=== PATIENT | male | born 1970 | race Caucasian/White ===

== ENCOUNTER 2020-09-02 04:48 | Emergency (ER) | payer BC, SELFPAY ==
--- NOTE | ~2020-09-02 | XR_ITS ---
EXAMINATION: XR CHEST CLINICAL INFORMATION: Shortness of breath COMPARISON: None TECHNIQUE: Frontal view of the chest was obtained. FINDINGS: Cardiac leads overlie the chest. No consolidation, pneumothorax, pleural effusion. Cardiac and mediastinal contours are normal. Pulmonary vasculature is unremarkable. No acute osseous findings. XR/XR chest 1V IMPRESSION: No acute cardiopulmonary findings.
--- NOTE | 2020-09-02 04:52 | ECG_ITS ---
Test Reason : IFF BREATHING Blood Pressure : / mmHG Vent. Rate : 085 BPM Atrial Rate : 085 BPM P-R Int : 170 ms QRS Dur : 074 ms QT Int : 372 ms P-R-T Axes : 079 078 030 degrees QTc Int : 442 ms Normal sinus rhythm Biatrial enlargement Abnormal ECG No previous ECGs available Referred By: Sonal Eller Electronically Signed By:BASIL COUGHLIN MD
[2020-09-02 04:56] VITALS: BP 181/114; PULSE 110; RESP 28; TEMP 36.6; O2SAT 95; BMI 25.4
[2020-09-02] MEDS: Albuterol Sulfate (0.083%) 2.5 MG/3 ML VIAL.NEB 10 MG INHALE (05:12)
[2020-09-02] MEDS: methylPREDNISolone Sod Succ 125 MG/2 ML VIAL IVPUSH (05:32)
[2020-09-02 05:38] LABS: Basophils Absolute Auto 0.1 X10*3/uL (0.0-0.2); Basophils Percent Auto 0.7 % (0-2); Eosinophils Percent Auto 14.5 % (0-4); Hematocrit 46.1 % (42-52); Hemoglobin 15.2 g/dl (14.0-18.0); Imm Gran Abs Auto 0.01 X10*3/uL (0.00-0.03); Imm Gran Pct Auto 0.1 % (0.0-0.4); Lymphocytes Absolute Auto 2.4 X10*3/uL (1.2-4.9); Lymphocytes Percent Auto 35.4 % (20-40); MANUAL DIFF FLAG NO; Mean Corpuscular Hemoglobin 33.4 pg (27.0-33.0); Mean Corpuscular Volume 101.3 fL (80-98); Monocytes Absolute Auto 0.6 X10*3/uL (0.1-1.2); Monocytes Percent Auto 8.6 % (2-11); Neutrophils Absolute Auto 2.8 X10*3/uL (2.0-8.3); Neutrophils Percent Auto 40.7 % (45-73); Platelet Count 329 X10*3/uL (160-400); Red Blood Count 4.55 X10*6/uL (4.60-5.80); Red Cell Distribution Width 11.7 % (11.0-16.0); White Blood Count 6.8 X10*3/uL (4.8-10.8)
--- NOTE | 2020-09-02 05:40 | ED.SOB ---
HPI - SOB/Dyspnea General Chief Complaint: Dyspnea Stated Complaint: Sob Time Seen by Provider: 09/02/20 04:51 Source: patient Mode of arrival: ambulatory History of Present Illness HPI Narrative: This is a 50-year-old male with history of asthma who states that over the past week he has had progressive worsening shortness of breath despite using his rescue inhaler. He denies any fevers, chills, sore throat, recent travel and recently had his physical. Related Data Previous Rx's Medication Instructions Recorded albuterol sulfate [Ventolin HFA] 2 puff INHALATION Q4-6H PRN #1 ea 09/02/20 prednisone 40 mg PO DAILY 4 Days #8 tab 09/02/20 Allergies Allergy/AdvReac Type Severity Reaction Status Date / Time Penicillins [PENICILLINS] Allergy Unknown UNKNOWN Verified 09/02/20 04:59 Review of Systems Review of Systems: Pertinent positives and negatives as stated in HPI 10 point review of systems is otherwise negative. PMFSH Past Medical History Source: nursing notes reviewed Medical History Asthma Social History Social History Alcohol intake: never Smoking Status: Never smoker Use of substances other than those prescribed or required for medical reasons: No Advance Directives: No Physical Exam Vital Signs: Vital Signs: Last Vital Signs Temp 98 F 09/02/20 04:56 Pulse 78 09/02/20 06:19 Resp 24 H 09/02/20 06:19 BP 146/94 H 09/02/20 06:19 Pulse Ox 98 09/02/20 06:19 Body Mass Index 25.4 VITAL SIGNS: Reviewed. GENERAL: Well developed, well nourished, in no acute distress. HEAD: Normocephalic/atraumatic NOSE: Nares patent bilateral OROPHARYNX: no oral lesions noted, posterior pharynx clear LUNGS: Tachypneic, bilateral expiratory wheezing, retractions SpO2<95> CARDIOVASCULAR: Regular rate and rhythm without noted murmurs ABDOMEN: Soft, non-tender, non-distended with bowel sounds. NEUROLOGIC: Alert and oriented x 4. Course Course Course Narrative: This is a 50-year-old male with history and clinical presentation consistent with acute asthma exacerbation and on review investigations there are no acute findings other than eosinophilia COVID-19 testing is negative and chest x-ray is without acute findings. Patient given Solu-Medrol, 10 mg hour long which was then followed by 5 mg and he reports improvement in his symptoms. Signed out to Dr Watson. MDM - SOB/Dyspnea Lab Data Result diagrams: 09/02/20 05:31 09/02/20 05:31 Labs: Lab Results 09/02/20 09/02/20 09/02/20 Range/Units 05:31 05:31 05:31 WBC 6.8 (4.8-10.8) X10*3/uL RBC 4.55 L (4.60-5.80) X10*6/uL Hgb 15.2 (14.0-18.0) g/dl Hct 46.1 (42-52) % MCV 101.3 H (80-98) fL MCH 33.4 H (27.0-33.0) pg MCHC 33.0 (31.0-36.0) g/dl RDW 11.7 (11.0-16.0) % Plt Count 329 (160-400) X10*3/uL MPV 9.0 L (9.4-12.4) fL Immature Gran % (Auto) 0.1 (0.0-0.4) % Neut % (Auto) 40.7 L (45-73) % Lymph % (Auto) 35.4 (20-40) % Patrick % (Auto) 8.6 (2-11) % Eos % (Auto) 14.5 H (0-4) % Baso % (Auto) 0.7 (0-2) % Lymph # (Auto) 2.4 (1.2-4.9) X10*3/uL Patrick # (Auto) 0.6 (0.1-1.2) X10*3/uL Eos # (Auto) 1.0 H (0.0-0.4) X10*3/uL Baso # (Auto) 0.1 (0.0-0.2) X10*3/uL Abs Immat Gran (auto) 0.01 (0.00-0.03) X10*3/uL Absolute Neuts (auto) 2.8 (2.0-8.3) X10*3/uL Absolute Nucleated RBC 0.000 (0.0-0.012) X10*3/uL Nucleated RBC % (auto) 0.0 (0.0-0.2) /100WBC Sodium 140 (135-145) mmol/L Potassium 3.9 (3.3-5.1) mmol/L Chloride 103 (96-108) mmol/L Carbon Dioxide 29 (22-29) mmol/L Anion Gap 12 (12-20) BUN 19 H (9-16) mg/dL Creatinine 0.99 (0.5-1.4) mg/dL Estim Creat Clear Calc 88.2 Estimated GFR > 60 Random Glucose 120 H (60-115) mg/dL Calcium 9.0 (8.4-10.2) mg/dL Total Bilirubin 0.7 (0.0-1.0) mg/dL AST 20 (5-37) U/L ALT 13 (0-40) U/L Alkaline Phosphatase 73 (39-117) U/L Total Protein 7.1 (6.5-8.0) g/dL Albumin 4.2 (3.5-5.0) g/dL Coronavirus (PCR) NEGATIVE (Negative) Influenza Type A (PCR) NEGATIVE (Negative) Influenza Type B (PCR) NEGATIVE (Negative) RSV RNA Qual (PCR) NEGATIVE (Negative) Discharge Plan Discharge Clinical Impression: Asthma with exacerbation Qualifiers: Asthma severity: mild Asthma persistence: unspecified Qualified Code(s): J45.901 - Unspecified asthma with (acute) exacerbation Patient Disposition: Home, Self-Care Instructions: Asthma (ED) Additional Instructions: Return to the emergency department for any acute worsening of your symptoms. Please follow-up with your primary care provider in the next 1-2 days for re-evaluation. Prescriptions: New prednisone 20 mg tablet 40 mg PO DAILY 4 Days Qty: 8 RF: 0 albuterol sulfate [Ventolin HFA] 90 mcg/actuation HFA aerosol inhaler 2 puff inhalation Q4-6H PRN (Reason: shortness of breath or wheezing) Qty: 1 RF: 0 Referrals: Physician,Unknown [Primary Care Provider] - 2 days
[2020-09-02 06:05] LABS: Alanine Aminotransferase 13 U/L (0-40); Albumin Level 4.2 g/dL (3.5-5.0); Alkaline Phosphatase 73 U/L (39-117); Anion Gap 12 (12-20); Aspartate Amino Transferase 20 U/L (5-37); Bilirubin Total 0.7 mg/dL (0.0-1.0); Blood Urea Nitrogen 19 mg/dL (9-16); Carbon Dioxide 29 mmol/L (22-29); Chloride 103 mmol/L (96-108); Creatinine Clr Calc Pharmacy 88.2; Estimated Glomerular Filt Rate > 60; Glucose Random 120 mg/dL (60-115); Potassium 3.9 mmol/L (3.3-5.1); Sodium 140 mmol/L (135-145); Total Protein 7.1 g/dL (6.5-8.0)
[2020-09-02 06:19] VITALS: BP 146/94; PULSE 78; RESP 24; O2SAT 98
[2020-09-02 06:21] LABS: Influenza A PCR NEGATIVE (Negative); Influenza B PCR NEGATIVE (Negative); Resp Syncy Virus RNA Qual PCR NEGATIVE (Negative); SARS COV2 PCR INHOUSE NEGATIVE (Negative)
[2020-09-02] MEDS: Albuterol Sulfate (0.083%) 2.5 MG/3 ML VIAL.NEB 5 MG INHALE ×2 (06:31→08:42)
[2020-09-02 07:32] VITALS: BP 134/86; PULSE 89; RESP 15; O2SAT 89
--- NOTE | 2020-09-02 07:40 | PC.NURSE ---
Report given to PASTOR Wiley n S3. Pt is ready for transport.
[2020-09-02 08:44] VITALS: PULSE 86; O2SAT 93
[2020-09-02 09:51] VITALS: BP 141/86; PULSE 95; RESP 18; O2SAT 98
== END 2020-09-02 09:58 | disposition home or self-care (01) ==
PROVIDERS: Emergency Provider Student in an Organized Health Care Education/Training Program
DX: J45.901 Unspecified asthma with (acute) exacerbation (principal); Z20.822 Contact with and (suspected) exposure to COVID-19
CPT/HCPCS: 0241U; 36415; 71045; 80053; 85025; 93005; 94640; 96374; 99284; 99285; J2930

== ENCOUNTER 2021-03-09 10:04 | Emergency (ER) | payer BC, SELFPAY ==
--- NOTE | ~2021-03-09 | XR_ITS ---
EXAMINATION: XR CHEST CLINICAL INFORMATION: Shortness of breath COMPARISON: September 02, 2020 TECHNIQUE: AP portable view of the chest was obtained. FINDINGS: No significant abnormality is noted involving the heart, lungs, mediastinum, or soft tissues. There is calcific tendinitis of the right shoulder. XR/XR chest 1V IMPRESSION: No acute disease
[2021-03-09 10:14] VITALS: BP 233/124; PULSE 80; RESP 22; TEMP 37; O2SAT 93; BMI 24.0
--- NOTE | 2021-03-09 11:09 | ED_ITS ---
HPI - SOB/Dyspnea General Chief Complaint: Dyspnea Stated Complaint: Asthma Time Seen by Provider: 03/09/21 11:06 Source: patient Mode of arrival: ambulatory Limitations: no limitations History of Present Illness HPI Narrative: 50-year-old male came in for evaluation of shortness of breath. Symptoms started about 2 weeks ago with shortness of breath, feeling chest tightness with wheezing, coughing yellow sputum, patient usually get acute bronchitis once a year around this time, patient declined any exposure to a sick contact or recent travel, patient had his COVID vaccination. Patient also with known history of hypertension taking hydrochlorothiazide but he did not take it today blood pressure found to be high in triage. Declined any headache, blurry vision, chest pain except with cough, or abdominal pain. Related Data Previous Rx's Medication Instructions Recorded albuterol sulfate 90 mcg/actuation 2 puff INHALATION Q4-6H PRN #1 ea 09/02/20 aerosol inhaler (Ventolin HFA) ipratropium 0.5 mg-albuterol 3 mg 3 ml INHALATION Q6H PRN #180 ml 09/02/20 (2.5 mg base)/3 mL nebulization soln nebulizer and compressor #1 ea 09/02/20 prednisone 10 mg tablet See Rx Instructions .ROUTE 09/02/20 .COMPLEX #36 tab albuterol sulfate 2.5 mg INHALATION QID PRN #90 ml 03/09/21 albuterol sulfate 90 mcg/actuation 1 inh INHALATION QID PRN #8.5 g 03/09/21 aerosol inhaler azithromycin 250 mg tablet See Rx Instructions .ROUTE 03/09/21 (Zithromax Z-Dereck) .COMPLEX #6 tab prednisone 20 mg tablet 20 mg PO BID #10 tab 03/09/21 Allergies Allergy/AdvReac Type Severity Reaction Status Date / Time Penicillins [PENICILLINS] Allergy Unknown UNKNOWN Verified 09/02/20 04:59 Review of Systems Review of Systems: All other systems are reviewed and are negative Constitutional: Reports as per HPI and Reports no additional constitutional complaints Eyes: Reports as per HPI and Reports no additional eye complaints Reports system reviewed and no additional complaints, except as documented Cardiovascular: Reports as per HPI and Reports no additional cardiovascular complaints Respiratory: Reports as per HPI and Reports no additional respiratory complaints Gastrointestinal: Reports as per HPI and Reports no additional gastrointestinal complaints Genitourinary: Reports no additional female genitourinary complaints Musculoskeletal: Reports no additional musculoskeletal complaints Skin/Breast: Reports system reviewed and no additional complaints, except as docu Psychiatric: Reports no additional psychiatric complaints Endocrine: Reports no additional endocrine complaints Hematologic/Lymphatic: Reports no additional hematologic/lymphatic complaints Allergic/Immunologic: Reports no additional allergic/immunologic complaints Reports system reviewed and no additional complaints, except as documented and Reports Abnormal speech present [facility] Past Medical History Medical History Asthma Social History Social History Alcohol intake: never Patient Tobacco Use Status: Never used Tobacco Use of substances other than those prescribed or required for medical reasons: Yes Substance Use Type: Marijuana Substance Use Frequency: Occasionally Advance Directives: No Physical Exam Vital Signs: Vital Signs: Last Vital Signs Temp 97.9 F 03/09/21 13:27 Pulse 107 H 03/09/21 13:27 Resp 19 03/09/21 13:27 BP 137/92 H 03/09/21 13:27 Pulse Ox 95 03/09/21 13:27 Body Mass Index 24.0 Vital signs have been reviewed as appeared to be correct. Blood pressure elevated. Heart rate normal. Respiration rate normal. Temperature normal. Oxygen saturation normal. Appearance: Alert. Oriented X3. No acute distress. Head: Normal external exam. Normocephalic. Atraumatic. No Bartlett signs noted. No raccoon eyes noted Eyes: PERRLA. EOMI. Conjunctiva and sclera normal. Eyelids normal. ENT: TM's Normal. Pharynx normal. Uvula midline. Moist mucous membranes. No trismus noted. No drooling noted. No muffled voice noted. Neck: Normal inspection. Neck supple. FROM. No adenopathy. Thyroid Normal. No meningeal signs. No neck mass noted. CVS: Normal heart rate and rhythm. Heart sound normal. No murmurs noted. Pulses normal throughout. Respiratory: No respiratory distress. Painless inspiration. Breath sounds normal. Diffuse mild expiratory wheezing, prolonged expiration. Chest nontender. No accessory muscle usage noted or decreased air movement noted. Abdomen: Soft and nontender. Bowel sounds normal in all 4 quadrants. No distention noted. No organomegaly noted. No visible injury noted. Back: No CVA tenderness. Full range of motion noted. Skin: Skin warm and dry. Normal skin color. Normal skin turgor. No rashes/lesions/lacerations noted. Extremities: No lower extremity edema. Extremities exhibit normal range of motion. Extremities nontender. Neuro: Oriented X 3. Cranial nerve exam: II-XII are grossly intact No motor deficit. No sensory deficit. Reflexes normal. Course Course Course Narrative: Assessment and plan. 1. Bronchitis: Negative COVID testing, unremarkable chest x-ray, labs are unremarkable, fib patient feels better with bronchodilator/Solu- Medrol/Zithromax. Will discharge the patient on Z-Dereck/steroid/bronchodilator. 2. Essential hypertension patient on HCTZ intake his medicine today blood pressure was high patient received 50 mg of HCTZ a blood pressure now is 137/92. Patient was instructed to follow up with his PCP for further blood pressure management. MDM - SOB/Dyspnea Lab Data Attestation: I reviewed the patient's lab results. Result diagrams: 03/09/21 11:24 03/09/21 11:24 Labs: Lab Results 03/09/21 03/09/21 03/09/21 Range/Units 11:24 11:24 11:24 WBC 7.2 (4.8-10.8) X10*3/uL RBC 4.46 L (4.60-5.80) X10*6/uL Hgb 15.1 (14.0-18.0) g/dl Hct 45.3 (42-52) % MCV 101.6 H (80-98) fL MCH 33.9 H (27.0-33.0) pg MCHC 33.3 (31.0-36.0) g/dl RDW 11.7 (11.0-16.0) % Plt Count 327 (160-400) X10*3/uL MPV 9.1 L (9.4-12.4) fL Immature Gran % (Auto) 0.1 (0.0-0.4) % Neut % (Auto) 49.5 (45-73) % Lymph % (Auto) 24.9 (20-40) % Conway % (Auto) 8.9 (2-11) % Eos % (Auto) 16.0 H (0-4) % Baso % (Auto) 0.6 (0-2) % Lymph # (Auto) 1.8 (1.2-4.9) X10*3/uL Conway # (Auto) 0.6 (0.1-1.2) X10*3/uL Eos # (Auto) 1.2 H (0.0-0.4) X10*3/uL Baso # (Auto) 0.0 (0.0-0.2) X10*3/uL Abs Immat Gran (auto) 0.01 (0.00-0.03) X10*3/uL Absolute Neuts (auto) 3.6 (2.0-8.3) X10*3/uL Absolute Nucleated RBC 0.000 (0.0-0.012) X10*3/uL Nucleated RBC % (auto) 0.0 (0.0-0.2) /100WBC Sodium 142 (135-145) mmol/L Potassium 4.5 (3.3-5.1) mmol/L Chloride 104 (96-108) mmol/L Carbon Dioxide 32 H (22-29) mmol/L Anion Gap 11 L (12-20) BUN 8 L D (9-16) mg/dL Creatinine 0.87 (0.5-1.4) mg/dL Estim Creat Clear Calc 100.4 Estimated GFR > 60 Random Glucose 91 (60-115) mg/dL Calcium 9.9 D (8.4-10.2) mg/dL Troponin I High Sens 3.6 (<3.5-35.0) ng/L B-Natriuretic Peptide 22 (<100) pg/mL COVID-19 ([facility]) (Negative) COVID-19 Clin Com 03/09/21 Range/Units 11:24 WBC (4.8-10.8) X10*3/uL RBC (4.60-5.80) X10*6/uL Hgb (14.0-18.0) g/dl Hct (42-52) % MCV (80-98) fL MCH (27.0-33.0) pg MCHC (31.0-36.0) g/dl RDW (11.0-16.0) % Plt Count (160-400) X10*3/uL MPV (9.4-12.4) fL Immature Gran % (Auto) (0.0-0.4) % Neut % (Auto) (45-73) % Lymph % (Auto) (20-40) % Conway % (Auto) (2-11) % Eos % (Auto) (0-4) % Baso % (Auto) (0-2) % Lymph # (Auto) (1.2-4.9) X10*3/uL Conway # (Auto) (0.1-1.2) X10*3/uL Eos # (Auto) (0.0-0.4) X10*3/uL Baso # (Auto) (0.0-0.2) X10*3/uL Abs Immat Gran (auto) (0.00-0.03) X10*3/uL Absolute Neuts (auto) (2.0-8.3) X10*3/uL Absolute Nucleated RBC (0.0-0.012) X10*3/uL Nucleated RBC % (auto) (0.0-0.2) /100WBC Sodium (135-145) mmol/L Potassium (3.3-5.1) mmol/L Chloride (96-108) mmol/L Carbon Dioxide (22-29) mmol/L Anion Gap (12-20) BUN (9-16) mg/dL Creatinine (0.5-1.4) mg/dL Estim Creat Clear Calc Estimated GFR Random Glucose (60-115) mg/dL Calcium (8.4-10.2) mg/dL Troponin I High Sens (<3.5-35.0) ng/L B-Natriuretic Peptide (<100) pg/mL COVID-19 ([facility]) Negative (Negative) COVID-19 Clin Com See Note Imaging Data Chest x-ray: Radiologist's impression: No acute disease. Critical Care Time Critical Care Time Critical Care Time: Yes Total Critical Care Time: 60 Attestation: I spent 60 minutes providing critical care service to the patient, this including time spent at the bedside to evaluate the patient, reassess the patient, monitoring vital signs, review labs, and radiographic studies, counseling the patient/family, discussing the case with consultants, disposition the patient. Discharge Plan Discharge Clinical Impression: Acute bronchitis Qualifiers: Bronchitis organism: unspecified organism Qualified Code(s): J20.9 - Acute bronchitis, unspecified Patient Disposition: Home, Self-Care Instructions: Acute Bronchitis (ED) Prescriptions: New albuterol sulfate 90 mcg/actuation HFA aerosol inhaler 1 inh inhalation QID PRN (Reason: shortness of breath or wheezing) Qty: 8.5 RF: 0 albuterol sulfate 2.5 mg /3 mL (0.083 %) solution for nebulization 2.5 mg inhalation QID PRN (Reason: shortness of breath or wheezing) Qty: 90 RF: 0 prednisone 20 mg tablet 20 mg PO BID Qty: 10 RF: 0 azithromycin [Zithromax Z-Dereck] 250 mg tablet See Rx Instructions .ROUTE .COMPLEX Qty: 6 RF: 0 No Action albuterol sulfate [Ventolin HFA] 90 mcg/actuation HFA aerosol inhaler 2 puff inhalation Q4-6H PRN (Reason: shortness of breath or wheezing) Qty: 1 RF: 0 prednisone 10 mg tablet See Rx Instructions .ROUTE .COMPLEX Qty: 36 RF: 0 (DME) nebulizer and compressor Device See Rx Instructions .ROUTE .MEDSUPPLY Qty: 1 RF: 0 ipratropium-albuterol 0.5 mg-3 mg(2.5 mg base)/3 mL solution for nebulization 3 ml inhalation Q6H PRN (Reason: shortness of breath or wheezing) Qty: 180 RF: 0 Referrals: Physician,Unknown [Primary Care Provider] - 2 days
[2021-03-09 11:27] VITALS: BP 171/116; PULSE 72; RESP 19; TEMP 36.8; O2SAT 94
[2021-03-09 11:28] LABS: MANUAL DIFF FLAG NO
--- NOTE | 2021-03-09 11:29 | PC.NURSE ---
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
[2021-03-09 11:31] LABS: Basophils Percent Auto 0.6 % (0-2); Eosinophils Absolute Auto 1.2 X10*3/uL (0.0-0.4); Hematocrit 45.3 % (42-52); Hemoglobin 15.1 g/dl (14.0-18.0); Imm Gran Abs Auto 0.01 X10*3/uL (0.00-0.03); Imm Gran Pct Auto 0.1 % (0.0-0.4); Lymphocytes Absolute Auto 1.8 X10*3/uL (1.2-4.9); Lymphocytes Percent Auto 24.9 % (20-40); Mean Corpuscular HGB Conc 33.3 g/dl (31.0-36.0); Mean Corpuscular Hemoglobin 33.9 pg (27.0-33.0); Mean Corpuscular Volume 101.6 fL (80-98); Mean Platelet Volume 9.1 fL (9.4-12.4); Monocytes Absolute Auto 0.6 X10*3/uL (0.1-1.2); Monocytes Percent Auto 8.9 % (2-11); Neutrophils Absolute Auto 3.6 X10*3/uL (2.0-8.3); Neutrophils Percent Auto 49.5 % (45-73); Platelet Count 327 X10*3/uL (160-400); Red Blood Count 4.46 X10*6/uL (4.60-5.80); Red Cell Distribution Width 11.7 % (11.0-16.0); White Blood Count 7.2 X10*3/uL (4.8-10.8)
[2021-03-09] MEDS: Azithromycin 500 MG TABLET PO (11:40)
[2021-03-09] MEDS: methylPREDNISolone Sod Succ 125 MG/2 ML VIAL IVPUSH (11:41)
[2021-03-09 11:43] LABS: Anion Gap 11 (12-20); Blood Urea Nitrogen 8 mg/dL (9-16); Calcium 9.9 mg/dL (8.4-10.2); Carbon Dioxide 32 mmol/L (22-29); Chloride 104 mmol/L (96-108); Creatinine Clr Calc Pharmacy 100.4; Estimated Glomerular Filt Rate > 60; Glucose Random 91 mg/dL (60-115); Potassium 4.5 mmol/L (3.3-5.1); Sodium 142 mmol/L (135-145)
--- NOTE | 2021-03-09 11:45 | PC.NURSE ---
pt medicated, pharmacy to bring up other medication, awaiting covid swab prior to updraft, will continue to monitor.
[2021-03-09 11:50] LABS: B Type Natriuretic Peptide 22 pg/mL (<100); Troponin-I High Sensitivity 3.6 ng/L (<3.5-35.0)
[2021-03-09 11:59] LABS: COVID-19 Test Negative (Negative)
[2021-03-09] MEDS: hydroCHLOROthiazide 50 MG TABLET PO (12:01)
[2021-03-09] MEDS: Albuterol Sulfate (0.083%) 2.5 MG/3 ML VIAL.NEB 5 MG INHALE (12:10)
[2021-03-09 12:11] VITALS: PULSE 88; O2SAT 90
[2021-03-09] MEDS: Albuterol/Iprat 2.5/0.5MG 3 ML AMPUL.NEB INHALE (12:11)
[2021-03-09 13:27] VITALS: BP 137/92; PULSE 107; RESP 19; TEMP 36.6; O2SAT 95
--- NOTE | 2021-03-09 13:28 | PC.NURSE ---
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
== END 2021-03-09 13:48 | disposition home or self-care (01) ==
PROVIDERS: Emergency Provider Emergency Medicine
DX: J20.9 Acute bronchitis, unspecified (principal); R06.00 Dyspnea, unspecified; F12.90 Cannabis use, unspecified, uncomplicated; Z20.822 Contact with and (suspected) exposure to COVID-19; Z79.899 Other long term (current) drug therapy
CPT/HCPCS: 36415; 71045; 80048; 83880; 84484; 85025; 87635; 94640; 94644; 96374; 99284; J2930

== ENCOUNTER 2022-06-20 03:21 | Observation (INO) | payer BC, SELFPAY ==
[2022-06-20] VITALS (15 sets, daily range): BP systolic 139–179; BP diastolic 86–111; PULSE 84–114; RESP 12–22; TEMP 36.4–37.2; O2SAT 90–95; BMI 26.6
--- NOTE | ~2022-06-20 | XR_ITS ---
EXAMINATION: XR CHEST CLINICAL INFORMATION: Shortness of breath COMPARISON: 03/09/2021 TECHNIQUE: Frontal view of the chest was obtained. FINDINGS: No significant abnormality is noted involving the heart, lungs, mediastinum, bony thorax or soft tissues. XR/XR chest 1V IMPRESSION: Unremarkable examination.
--- NOTE | 2022-06-20 03:36 | ED_ITS ---
HPI - SOB/Dyspnea General Chief Complaint: Dyspnea Stated Complaint: Trouble Breathing, low O2 levels, asthmatic Time Seen by Provider: 06/20/22 03:33 Source: patient Mode of arrival: ambulatory Limitations: no limitations History of Present Illness HPI Narrative: 51-year-old male who presents emergency department for evaluation an asthma exacerbation. The patient states that he was hospitalized in [place] approximately 3 weeks ago for an asthma exacerbation. He was hospitalized for approximately 4 days. He traveled to this area 1 week prior. He is visiting family. States that over the past week he has been short of breath. He has also had a cough which is nonproductive. He states he has been using his albuterol inhaler frequently with no relief. He does not have a maintenance inhaler. He states that prior to coming to the emergency department he was having difficulty walking and was getting very short of breath with exertion. His family was concerned and dropped him off in the emergency department to be evaluated. The patient states that his asthma is often exacerbated by cold weather. He denied fever, chills, cough, nausea, vomiting, myalgias arthralgias. The patient does have a history of hypertension and takes losartan 50 mg once a day. He states that he left his blood pressure medication in your can is not been compliant with his medication for 1 week. Related Data Home Medications Medication Instructions Recorded Confirmed atomoxetine 40 mg capsule 1 cap PO QAM 06/20/22 06/20/22 buspirone 5 mg tablet 1 tab PO BID PRN anxiety 06/20/22 06/20/22 fluticasone 250 mcg-salmeterol 50 1 puff inhalation BID 06/20/22 06/20/22 mcg/dose blistr powdr for inhalation (Joanxela Inhub) losartan 50 mg tablet 1 tab PO DAILY 06/20/22 06/20/22 montelukast 10 mg tablet 1 tab PO DAILY 06/20/22 06/20/22 Previous Rx's Medication Instructions Recorded albuterol sulfate 90 mcg/actuation 2 puff inhalation Q4-6H PRN 09/02/20 aerosol inhaler (Ventolin HFA) shortness of breath or wheezing #1 ea ipratropium 0.5 mg-albuterol 3 mg 3 ml inhalation Q6H PRN shortness 09/02/20 (2.5 mg base)/3 mL nebulization of breath or wheezing #180 mL soln nebulizer and compressor #1 ea 09/02/20 albuterol sulfate 2.5 mg/3 mL 2.5 mg (3 mL) inhalation QID PRN 03/09/21 (0.083 %) solution for nebulization shortness of breath or wheezing #90 mL Allergies Allergy/AdvReac Type Severity Reaction Status Date / Time Penicillins [PENICILLINS] Allergy Unknown UNKNOWN Verified 09/02/20 04:59 Review of Systems Review of Systems: Yes all other systems are reviewed and are negative [facility] Past Medical History [facility] Narrative: Past medical history: Hypertension, asthma. Social history: He lives in [place] and is visiting family in this area. Denies tobacco use. He denies a lcohol use. He denies drug use. Medical History Asthma Social History Social History Alcohol intake: never Patient Tobacco Use Status: Never used Tobacco Smoked in Last 30 Days: No Use of substances other than those prescribed or required for medical reasons: No Substance Use Type: Marijuana Advance Directives: No Advance Directives Information Provided: No Physical Exam Vital Signs: Vital Signs: Last Vital Signs Temp 97.5 F 06/20/22 03:57 Pulse 93 06/20/22 06:07 Resp 20 06/20/22 06:07 BP 149/92 H 06/20/22 06:07 Pulse Ox 93 06/20/22 06:07 O2 Del Method 06/20/22 06:07 BMI result Body Mass Index 26.6 Const: Other: Patient is awake and alert, he is using accessory muscles type breathe, he is tachypneic, he is having difficulty speaking in full sentences HEENT: Head: Yes normal to inspection, Yes normocephalic and Yes atraumatic Ears: external ears normal General nose exam: Normal external nose present Face and sinus: Yes normal facial exam Mouth: Normal oral and palatal mucosa present Throat: Yes posterior oropharynx normal Eyes: General: appearance normal, both eyes and all related structures Pupils: Equal, round and reactive pupils present Neck: Neck: Yes normal visual inspection, Yes no lymphadenopathy, Yes trachea midline and Yes supple Chest: Chest palpation & inspection: normal inspection of the chest and normal palpation of entire chest wall Resp: Other: Tachypnea, using accessory muscles to breathe, diffuse wheezing and rhonchi Cardio: Rate: regular rate Rhythm: regular rhythm Heart sounds: S1 normal heart sound present, S2 normal heart sound present and no murmurs GI: Inspection: Yes normal to inspection Palpation (GI): Soft to palpation, nontender and no guarding Auscultation: normal bowel sounds : General: Yes no CVA tenderness Back/Spine/Pelvis: Back: no CVA tenderness Skin: General skin exam: no rashes or lesions noted Neuro: Cranial nerves: Yes CN's II-XII intact bilaterally and Yes Equal, round and reactive pupils present Cognition (Neuro): normal cognition Motor exam (neuro): 5/5 motor strength present throughout Extrem: General: Yes normal to inspection Psych: Appearance: grossly normal Speech and movement: Normal speech and movement present Affect: normal affect Attitude: cooperative Thought process: Normal thought process present Thought content: Normal thought content present Medications Administered Discontinued Medications Generic Name Dose Route Start Last Admin Trade Name Freq PRN Reason Stop Dose Admin Albuterol Sulfate 10 mg 06/20/22 03:36 06/20/22 03:49 Albuterol Sulfate 2.5 Mg/0.5 Ml Vial.Neb INHALE 06/20/22 03:37 10 mg ONCE ONE Administration Albuterol/Ipratropium 3 ml 06/20/22 04:43 06/20/22 04:59 Albuterol/Iprat 2.5/0.5mg 3 Ml Ampul.Neb INHALE 06/20/22 04:44 3 ml ONCE ONE Administration Losartan Potassium 50 mg 06/20/22 04:43 06/20/22 05:02 Losartan Potassium 50 Mg Tablet PO 06/20/22 04:44 50 mg ONCE STA Administration Protocol Methylprednisolone Sodium Succinate 125 mg 06/20/22 03:36 06/20/22 03:45 Methylprednisolone Sod Succ 125 Mg/2 Ml Vial IVPUSH 06/20/22 03:37 125 mg ONCE ONE Administration Medical Decision Making Medical Decision Making MDM Narrative: 51-year-old male with a history of asthma and hypertension who presents emergency department for evaluation of 1 week of shortness of breath with worsening symptoms over the last 24 hours. Approximately 3 weeks prior the patient was hospitalized in [place] for 4 days for an asthma exacerbation. The patient only has an albuterol inhaler and does not have a maintenance inhaler. Patient has had a nonproductive cough swell. On presentation the patient appear to be in significant respiratory distress, he was using accessory muscles, he was tachypneic and was having difficulty talking in full sentences. Vital signs revealed hypertension with a blood pressure of 179/111, patient has been noncompliant with his losartan for 1 week. Patient's respiratory rate was elevated at 22, O2 saturation was low at 90% on room air. His lung exam revealed diffuse wheezing and rhonchi. Laboratory evaluation including a CBC, CMP, lipase, PT/INR, PTT, COVID-19, influenza, RSV, chest x-ray one view. Patient was ordered to get an albuterol nebulizer 10 mg over 1 hour followed by a DuoNeb 3 mg x 1. He also was ordered to get Solu-Medrol 125 mg IV and losartan 50 mg orally. 0601: Laboratory evaluation revealed a normal CBC and CMP. The patient's COVID-19, influenza and RSV were negative. Chest x-ray one view revealed no evidence of pneumonia. The patient is significantly better but still has signi ficant wheezing, given his presentation I believe the patient has a large inflammatory component to his asthma exacerbation and he would benefit from being admitted for repeat steroids and further respiratory treatments. Therefore I will discuss the patient's presentation with the covering hospital ist 0630: I did discuss the patient's presentation with the covering hospitalist, Dr. Nascimento and the patient will be admitted to the hospital service for further management. Differential Diagnosis The differential diagnosis includes was not limited to asthma exacerbation, pneumonia, pulmonary embolism, congestive heart failure, pneumothorax Consult Healthcare Provider Management of the patient was discussed with: Hospitalist Lab Data [facility] Lab Attestation statement: I reviewed the patient's lab results. Please see the medical decision making section from my independent interpreted of patient's laboratory studies Result Diagrams: 06/20/22 03:52 06/20/22 03:52 Labs: Lab Results 06/20/22 06/20/22 06/20/22 Range/Units 03:52 03:52 03:52 WBC 9.2 (4.8-10.8) X10*3/uL RBC 4.78 (4.60-5.80) X10*6/uL Hgb 15.8 (14.0-18.0) g/dl Hct 47.9 (42.0-52.0) % MCV 100.2 H (80.0-98.0) fL MCH 33.1 H (27.0-33.0) pg MCHC 33.0 (31.0-36.0) g/dl RDW 11.6 (11.0-16.0) % Plt Count 325 (160-400) X10*3/uL MPV 9.3 L (9.4-12.4) fL Immature Gran % (Auto) 0.2 (0.0-0.4) % Neut % (Auto) 39.2 L (45-73) % Lymph % (Auto) 35.7 (20-40) % [place] % (Auto) 9.2 (2-11) % Eos % (Auto) 14.8 H (0-4) % Baso % (Auto) 0.9 (0-2) % Lymph # (Auto) 3.3 (1.2-4.9) X10*3/uL [place] # (Auto) 0.9 (0.1-1.2) X10*3/uL Eos # (Auto) 1.4 H (0.0-0.4) X10*3/uL Baso # (Auto) 0.1 (0.0-0.2) X10*3/uL Abs Immat Gran (auto) 0.02 (0.00-0.03) X10*3/uL Absolute Neuts (auto) 3.6 (2.0-8.3) x10*3/uL Absolute Nucleated RBC 0.000 (0.0-0.012) X10*3/uL Nucleated RBC % (auto) 0.0 (0.0-0.2) /100WBC PT (10.0-13.1) SEC INR (0.9-1.1) APTT (26.0-36.4) SEC Sodium 141 (135-145) mmol/L Potassium 4.8 (3.3-5.1) mmol/L Chloride 102 (96-108) mmol/L Carbon Dioxide 28 (22-29) mmol/L Anion Gap 16 (12-20) BUN 23 H (9-16) mg/dL Creatinine 1.16 (0.5-1.4) mg/dL Estim Creat Clear Calc 74.5 Estimated GFR > 60 Random Glucose 113 (60-115) mg/dL Calcium 9.8 (8.4-10.2) mg/dL Total Bilirubin 0.7 (0.0-1.0) mg/dL AST 26 (5-37) U/L ALT 20 (0-40) U/L Alkaline Phosphatase 64 (39-117) U/L B-Natriuretic Peptide < 10 (<100) pg/mL Total Protein 7.7 (6.5-8.0) g/dL Albumin 4.6 (3.5-5.0) g/dL Lipase 8 (8-78) U/L Influenza Type A (PCR) (Negative) Influenza Type B (PCR) (Negative) RSV RNA Qual (PCR) (Negative) SARS-CoV-2 RNA (RT-PCR) (Negative) 06/20/22 06/20/22 Range/Units 03:52 03:52 WBC (4.8-10.8) X10*3/uL RBC (4.60-5.80) X10*6/uL Hgb (14.0-18.0) g/dl Hct (42.0-52.0) % MCV (80.0-98.0) fL MCH (27.0-33.0) pg MCHC (31.0-36.0) g/dl RDW (11.0-16.0) % Plt Count (160-400) X10*3/uL MPV (9.4-12.4) fL Immature Gran % (Auto) (0.0-0.4) % Neut % (Auto) (45-73) % Lymph % (Auto) (20-40) % [place] % (Auto) (2-11) % Eos % (Auto) (0-4) % Baso % (Auto) (0-2) % Lymph # (Auto) (1.2-4.9) X10*3/uL [place] # (Auto) (0.1-1.2) X10*3/uL Eos # (Auto) (0.0-0.4) X10*3/uL Baso # (Auto) (0.0-0.2) X10*3/uL Abs Immat Gran (auto) (0.00-0.03) X10*3/uL Absolute Neuts (auto) (2.0-8.3) x10*3/uL Absolute Nucleated RBC (0.0-0.012) X10*3/uL Nucleated RBC % (auto) (0.0-0.2) /100WBC PT 12.2 (10.0-13.1) SEC INR 1.1 (0.9-1.1) APTT 32.1 (26.0-36.4) SEC Sodium (135-145) mmol/L Potassium (3.3-5.1) mmol/L Chloride (96-108) mmol/L Carbon Dioxide (22-29) mmol/L Anion Gap (12-20) BUN (9-16) mg/dL Creatinine (0.5-1.4) mg/dL Estim Creat Clear Calc Estimated GFR Random Glucose (60-115) mg/dL Calcium (8.4-10.2) mg/dL Total Bilirubin (0.0-1.0) mg/dL AST (5-37) U/L ALT (0-40) U/L Alkaline Phosphatase (39-117) U/L B-Natriuretic Peptide (<100) pg/mL Total Protein (6.5-8.0) g/dL Albumin (3.5-5.0) g/dL Lipase (8-78) U/L Influenza Type A (PCR) NEGATIVE (Negative) Influenza Type B (PCR) NEGATIVE (Negative) RSV RNA Qual (PCR) NEGATIVE (Negative) SARS-CoV-2 RNA (RT-PCR) NEGATIVE (Negative) Independent Interpretation I performed an independent interpretation of an: Plain X-Ray Interpretation: One-view chest x-ray: Hyperinflation with no acute infiltrate Radiology Impression Discussion of test interpretation with radiology: I have reviewed the radiologist's reading. Radiologist Impression: IMPRESSION: Unremarkable examination. Dictated By:Saad Vale MDSigned By:<Electronically signed by Saad Vale MD in OV>06/20/22 [id number] Independent Historian Clinical information obtained from an independent historian. History obtained from or confirmed by: Other (Girlfriend) Tests considered The following testing was considered but not selected: D-dimer, CT angiogram pulmonary embolus protocol Discharge Plan Discharge Clinical Impression: Essential (primary) hypertension, Medically noncompliant Asthma with exacerbation Qualifiers: Asthma severity: severe Asthma persistence: persistent Qualified Code(s): J45.51 - Severe persistent asthma with (acute) exacerbation Patient Disposition: Admitted As Inpatient
[2022-06-20] MEDS: methylPREDNISolone Sod Succ 125 MG/2 ML VIAL IVPUSH (03:45)
[2022-06-20] MEDS: Albuterol Sulfate 2.5 MG/0.5 ML VIAL.NEB 10 MG INHALE (03:49)
--- NOTE | 2022-06-20 03:52 | PC.NURSE ---
Pt aox3. Presents with difficulty breathing and labored breaths. O2 sat 90% RA. NSR on monitor with HR 85. MD and respiratory at bedside. Pt medicated as ordered. O2 sat 95% on albuterol treatment.
[2022-06-20 03:57] LABS: MANUAL DIFF FLAG NO
[2022-06-20 03:58] LABS: Basophils Absolute Auto 0.1 X10*3/uL (0.0-0.2); Basophils Percent Auto 0.9 % (0-2); Eosinophils Absolute Auto 1.4 X10*3/uL (0.0-0.4); Eosinophils Percent Auto 14.8 % (0-4); Hematocrit 47.9 % (42.0-52.0); Hemoglobin 15.8 g/dl (14.0-18.0); Imm Gran Abs Auto 0.02 X10*3/uL (0.00-0.03); Imm Gran Pct Auto 0.2 % (0.0-0.4); Lymphocytes Absolute Auto 3.3 X10*3/uL (1.2-4.9); Lymphocytes Percent Auto 35.7 % (20-40); Mean Corpuscular Hemoglobin 33.1 pg (27.0-33.0); Mean Corpuscular Volume 100.2 fL (80.0-98.0); Mean Platelet Volume 9.3 fL (9.4-12.4); Monocytes Absolute Auto 0.9 X10*3/uL (0.1-1.2); Monocytes Percent Auto 9.2 % (2-11); Neutrophils Absolute Auto 3.6 x10*3/uL (2.0-8.3); Neutrophils Percent Auto 39.2 % (45-73); Platelet Count 325 X10*3/uL (160-400); Red Blood Count 4.78 X10*6/uL (4.60-5.80); Red Cell Distribution Width 11.6 % (11.0-16.0); White Blood Count 9.2 X10*3/uL (4.8-10.8)
[2022-06-20 04:07] LABS: INTERNATIONAL NORM RATIO 1.1 (0.9-1.1); Prothrombin Time 12.2 SEC (10.0-13.1)
[2022-06-20 04:09] LABS: Partial Thromboplastin Time 32.1 SEC (26.0-36.4)
[2022-06-20 04:24] LABS: B Type Natriuretic Peptide < 10 pg/mL (<100)
[2022-06-20 04:29] LABS: Alanine Aminotransferase 20 U/L (0-40); Albumin Level 4.6 g/dL (3.5-5.0); Alkaline Phosphatase 64 U/L (39-117); Anion Gap 16 (12-20); Aspartate Amino Transferase 26 U/L (5-37); Bilirubin Total 0.7 mg/dL (0.0-1.0); Blood Urea Nitrogen 23 mg/dL (9-16); Calcium 9.8 mg/dL (8.4-10.2); Carbon Dioxide 28 mmol/L (22-29); Chloride 102 mmol/L (96-108); Creatinine Clr Calc Pharmacy 74.5; Estimated Glomerular Filt Rate > 60; Glucose Random 113 mg/dL (60-115); Lipase 8 U/L (8-78); Potassium 4.8 mmol/L (3.3-5.1); Sodium 141 mmol/L (135-145); Total Protein 7.7 g/dL (6.5-8.0)
[2022-06-20 04:35] LABS: Influenza A PCR NEGATIVE (Negative); Influenza B PCR NEGATIVE (Negative); Resp Syncy Virus RNA Qual PCR NEGATIVE (Negative); SARS COV2 PCR INHOUSE NEGATIVE (Negative)
[2022-06-20] MEDS: Albuterol/Iprat 2.5/0.5MG 3 ML AMPUL.NEB INHALE (04:59)
[2022-06-20] MEDS: Losartan Potassium 50 MG TABLET PO ×2 (05:02→09:55)
--- NOTE | 2022-06-20 06:25 | PC.NURSE ---
Med req completed.
--- NOTE | 2022-06-20 08:17 | PM.IMHP ---
History of Present Illness Date of Service: 06/20/22 Chief Complaint: Shortness of breath 51 year severe persistent asthma for years, uses Nebs at home. He reportedly is visiting from [facility] and also reports recent hospitalization at [place] for exacerbation of asthma and stayed in the hospital for 4 days. He has been increasingly more short of breath of the last week, with dry cough, and becomes more winded with activity, and not getting relief with inhalers at home. No hypoxia documented here, cxr no pna. Treated w/ Nebs and steroid and still not optimal and therefore is been observed. Negative Covid, RSV or Influenza Review of Systems Review of Systems: Gen: no fever Resp: +sob, no cough CV: no chest, no RYAN, no leg edema GI: No n/v, no abd pain Neuro: No confusion [facility] Medical History (Updated 06/20/22 @ 08:35 by Eduardo Osorio MD) ADHD Asthma Essential (primary) hypertension Pertinent family history: asthma Social History Alcohol intake: never Patient Tobacco Use Status: Never used Tobacco Smoked in Last 30 Days: No Use of substances other than those prescribed or required for medical reasons: No Substance Use Type: Marijuana Advance Directives: No Advance Directives Information Provided: No Meds Allergies Allergy/AdvReac Type Severity Reaction Status Date / Time Penicillins [PENICILLINS] Allergy Unknown UNKNOWN Verified 09/02/20 04:59 Active Medications: Current Medications Pharmacy Consult (Consult Rx Perform Med Rec) 1 each MISCELLANE ONCE PRN PRN Reason: Consult order Home Medications Medication Instructions Recorded Confirmed Last Taken Type atomoxetine 40 mg capsule 1 cap PO QAM 06/20/22 06/20/22 Unknown History buspirone 5 mg tablet 1 tab PO BID PRN anxiety 06/20/22 06/20/22 Unknown History fluticasone 250 mcg-salmeterol 50 1 puff inhalation BID 06/20/22 06/20/22 Unknown History mcg/dose blistr powdr for inhalation (Wixela Inhub) losartan 50 mg tablet 1 tab PO DAILY 06/20/22 06/20/22 Unknown History montelukast 10 mg tablet 1 tab PO DAILY 06/20/22 06/20/22 Unknown History Physical Exam Vital Signs and Narrative: Vital Signs: Last Vital Signs Temp 98.4 F 06/20/22 07:49 Pulse 89 06/20/22 07:49 Resp 22 H 06/20/22 07:49 BP 139/94 H 06/20/22 07:49 Pulse Ox 93 06/20/22 07:49 O2 Del Method 06/20/22 07:49 BMI result Body Mass Index 26.6 Const: Other: General: AO X 3, no acute distress Resp: CTA bilateral, but tight air movement, no wheeze and no accessory muslce use CVS: S1,S2,RRR GI: +BS, NT, no distention Skin: No rash Neuro: motor grossly intact Psych: appropriate affect Results Labs CBC and Chem 7: 06/20/22 03:52 06/20/22 03:52 Labs: Laboratory Results - last 24 hr 06/20/22 06/20/22 06/20/22 03:52 03:52 03:52 MCV 100.2 H MCH 33.1 H MCHC 33.0 RDW 11.6 Plt Count 325 MPV 9.3 L Immature Gran % (Auto) 0.2 Neut % (Auto) 39.2 L Lymph % (Auto) 35.7 [place] % (Auto) 9.2 Eos % (Auto) 14.8 H Baso % (Auto) 0.9 Lymph # (Auto) 3.3 [place] # (Auto) 0.9 Eos # (Auto) 1.4 H Baso # (Auto) 0.1 Abs Immat Gran (auto) 0.02 Absolute Neuts (auto) 3.6 Absolute Nucleated RBC 0.000 Nucleated RBC % (auto) 0.0 PT INR APTT Anion Gap 16 Estim Creat Clear Calc 74.5 Estimated GFR > 60 Random Glucose 113 Calcium 9.8 Total Bilirubin 0.7 AST 26 ALT 20 Alkaline Phosphatase 64 B-Natriuretic Peptide < 10 Total Protein 7.7 Albumin 4.6 Lipase 8 Influenza Type A (PCR) Influenza Type B (PCR) RSV RNA Qual (PCR) SARS-CoV-2 RNA (RT-PCR) 06/20/22 06/20/22 03:52 03:52 MCV MCH MCHC RDW Plt Count MPV Immature Gran % (Auto) Neut % (Auto) Lymph % (Auto) [place] % (Auto) Eos % (Auto) Baso % (Auto) Lymph # (Auto) [place] # (Auto) Eos # (Auto) Baso # (Auto) Abs Immat Gran (auto) Absolute Neuts (auto) Absolute Nucleated RBC Nucleated RBC % (auto) PT 12.2 INR 1.1 APTT 32.1 Anion Gap Estim Creat Clear Calc Estimated GFR Random Glucose Calcium Total Bilirubin AST ALT Alkaline Phosphatase B-Natriuretic Peptide Total Protein Albumin Lipase Influenza Type A (PCR) NEGATIVE Influenza Type B (PCR) NEGATIVE RSV RNA Qual (PCR) NEGATIVE SARS-CoV-2 RNA (RT-PCR) NEGATIVE Imaging Radiologist's Impressions: Impressions Chest X-Ray 06/20/22 05:00 IMPRESSION: Unremarkable examination. Assessment and Plan (1) Asthma with exacerbation: Qualifiers: Asthma persistence: persistent Asthma severity: severe Qualified Code(s): J45.51 - Severe persistent asthma with (acute) exacerbation Status: Acute (2) Essential (primary) hypertension: Status: Acute Plan 51/ male with severe persistent asthma here with acute exacerbation Severe persistent asthma with acute exacerbation no hypoxia -Observe, treat with brnchodilators by Neb scheduled and PRN, IV steroid, Monteleukast. I anticpate improvment in 48 hours HTN--continue Losartan ADHD--Atomexetine or equivalent Time Spent With Patient Time: Total time managing care of this patient today _55___ minutes. Quality Stroke Does the patient have a stroke diagnosis?: No VTE Prior VTE?: No VTE Risk Level:: Medical - low VTE Device Contraindication: Treatment Not Tolerated VTE Drug Contraindication: Treatment Not Indicated
--- NOTE | 2022-06-20 08:46 | PHA.MEDREC ---
Pharmacy Consult ? Medication Reconciliation Pharmacy has completed the medication reconciliation. Patient reports taking a dry powder inhaler, however after discussion he does not take the inhaler regular. Patient also reports taking a losartan however he has no claim history. Patient admitts he is not adherent to his medications but it is not use to having all these health problems. Nicole Miramontes, PharmD
[2022-06-20] MEDS: Montelukast Sodium 10 MG TABLET PO (09:55)
[2022-06-20] MEDS: Albuterol Sulfate (0.083%) 2.5 MG/3 ML VIAL.NEB INHALE ×3 (12:49→19:13)
[2022-06-20] MEDS: methylPREDNISolone Sod Succ 40 MG/ML VIAL 60 MG IVPUSH ×2 (16:04→23:27)
[2022-06-20] MEDS: Acetaminophen 325 MG TABLET 650 MG PO (16:04)
[2022-06-20] MEDS: 0.9 % Sodium Chloride Flush 3 ML SYRINGE IVFLUSH ×2 (16:05→23:27)
--- NOTE | 2022-06-20 16:09 | PC.NURSE ---
pt a/o x 4 no sob/oriana noted speaks in full sentences. lungs rojas upper slightly diminished and rojas lower lobes diminished. pt aware of plan of care. pt amb (i) gait steady earlier to bathroom and btb.
--- NOTE | 2022-06-20 17:28 | PC.NURSE ---
pt's 02 sat 90% on r/a. prior to duoneb tx. aware 02 applied at 2l/m via n/c.
--- NOTE | 2022-06-20 17:30 | PC.NURSE ---
nic c-pap machine brought to pt's bedside by resp therapy (allyson). pt states that he uses a c-pap machine at night but does not have his machine with him.
--- NOTE | 2022-06-20 19:02 | PC.NURSE ---
report received from Jodi BAUMANN
--- NOTE | 2022-06-20 19:52 | PC.NURSE ---
report called to [employer]. patient to be transported to room 373
[2022-06-21 04:00] VITALS: BP 156/96; PULSE 94; RESP 18; TEMP 36.4; O2SAT 94
[2022-06-21] MEDS: methylPREDNISolone Sod Succ 40 MG/ML VIAL 60 MG IVPUSH (05:55)
[2022-06-21] MEDS: Losartan Potassium 50 MG TABLET PO (07:19)
[2022-06-21] MEDS: Montelukast Sodium 10 MG TABLET PO (07:19)
[2022-06-21] MEDS: 0.9 % Sodium Chloride Flush 3 ML SYRINGE IVFLUSH (07:20)
[2022-06-21 07:50] VITALS: BP 162/98; PULSE 75; RESP 18; TEMP 36.9; O2SAT 98
[2022-06-21 09:34] VITALS: PULSE 75; RESP 18; O2SAT 94
[2022-06-21] MEDS: Albuterol Sulfate (0.083%) 2.5 MG/3 ML VIAL.NEB INHALE (09:35)
--- NOTE | 2022-06-21 10:22 | PM.DS ---
DS: Providers Provider Date of Service: 06/21/22 Date of admission: 06/20/22 08:41 Primary care physician: Nonstaff Physician DS: Diagnosis Discharge Diagnosis (1) Asthma with exacerbation: Status: Acute (2) Essential (primary) hypertension: Status: Acute DS: Summary Hospital Course Hospital Course: Chief Complaint: Shortness of breath 51 year severe persistent asthma for years, uses Nebs at home. He reportedly is visiting from [facility] and also reports recent hospitalization at [place] for exacerbation of asthma and stayed in the hospital for 4 days. He has been increasingly more short of breath of the last week, with dry cough,? and becomes more winded with activity, and not getting relief with inhalers at home. No hypoxia documented here, cxr no pna. Treated w/ Nebs and steroid and still not optimal? and therefore is been observed. Negative Covid, RSV or Influenza Hosptial course Patient was observed in the hospital overnight and treated with bronchidlators by Neb, IV steroid and by the next morning felt better. No hypoxia and will be discharge home with 4 more days of Prednisone and continue usual inhalers Time Spent with Patient Time attestation: Total time managing care of this patient today ____ minutes. Discharge coordination time: Less than 30 minutes Quality: Safe Use of Opioids Does Pt have an Active Cancer Diagnosis on the Problem List?: No Quality: Stroke Does the patient have a stroke diagnosis?: No Physical Exam Vital Signs: Vital Signs: Last Vital Signs Temp 98.5 F 06/21/22 07:50 Pulse 75 06/21/22 09:34 Resp 18 06/21/22 09:34 BP 162/98 H 06/21/22 07:50 Pulse Ox 98 06/21/22 07:50 O2 Del Method 06/21/22 07:50 O2 Flow Rate 2.0 06/21/22 07:50 BMI result Body Mass Index 26.6 Discharge Plan Discharge Anticipated Discharge Date/Time: 06/21/22 10:16 Patient Disposition: Home, Self-Care Discharge Diagnosis: Asthma exacerbation Referrals: Physician,Nonstaff [Primary Care Provider] - 1 Week Discharge Medications: New prednisone 20 mg tablet 40 mg PO DAILY Qty: 8 0RF Continued albuterol sulfate [Ventolin HFA] 90 mcg/actuation HFA aerosol inhaler 2 puff inhalation Q4-6H PRN (Reason: shortness of breath or wheezing) Qty: 1 0RF (DME) nebulizer and compressor Device See Rx Instructions .ROUTE .MEDSUPPLY Qty: 1 0RF Rx Instructions: As directed ipratropium-albuterol 0.5 mg-3 mg(2.5 mg base)/3 mL solution for nebulization 3 ml inhalation Q6H PRN (Reason: shortness of breath or wheezing) Qty: 180 0RF albuterol sulfate 2.5 mg /3 mL (0.083 %) solution for nebulization 2.5 mg inhalation QID PRN (Reason: shortness of breath or wheezing) Qty: 90 0RF losartan 50 mg tablet 1 tab PO DAILY buspirone 5 mg tablet 1 tab PO BID PRN (Reason: anxiety) fluticasone propion-salmeterol [Wixela Inhub] 250-50 mcg/dose blister with device 1 puff INHALATION BID montelukast 10 mg tablet 1 tab PO DAILY atomoxetine 40 mg capsule 1 cap PO QAM Discharge Orders: Discharge Order (Routine); Ordered 06/21/22 Ordered By: Eduardo Osorio Diet: Advance to usual diet Activity on Discharge: As tolerated Stand Alone Forms: Patient Portal Discharge page Care Plan Goals: recovery from asthma Health Concerns: asthma Plan of Treatment: take Prednisone as directed and follow up with your Doctor in a week Assessment: as above
== END 2022-06-21 11:00 | disposition home or self-care (01) ==
LOC: HO.ED 06:10 → HO.EDOVER 08:47 → HO.S3 19:25
PROVIDERS: Admitting Provider Internal Medicine; Emergency Provider Emergency Medicine Emergency Medical Services; Visit Provider Internal Medicine
DX: J45.51 Severe persistent asthma with (acute) exacerbation (principal); I10 Essential (primary) hypertension; Z91.14 Patient's other noncompliance with medication regimen; Z20.828 Contact with and (suspected) exposure to other viral communicable diseases; R06.02 Shortness of breath; F12.90 Cannabis use, unspecified, uncomplicated
CPT/HCPCS: 0241U; 36415; 71045; 80053; 83690; 83880; 85025; 85610; 85730; 94640; 96374; 96376; 99221; 99285; J2920; J2930

== ENCOUNTER 2023-03-19 23:01 | Emergency (ER) | payer BC, SELFPAY ==
--- NOTE | ~2023-03-19 | XR_ITS ---
EXAMINATION: XR PORTABLE CHEST CLINICAL INFORMATION: Asthma exacerbation. Rule out pneumonia. COMPARISON: 06/20/2022 TECHNIQUE: AP portable upright view of the chest FINDINGS: Lungs are hyperinflated though clear. No consolidation, pneumothorax, or pleural effusion. Cardiac and mediastinal contours are normal. Pulmonary vasculature is unremarkable. Osseous structures are unremarkable. XR/XR chest 1V IMPRESSION: No acute cardiopulmonary findings.
[2023-03-19 23:05] VITALS: BP 96/69; PULSE 88; RESP 22; O2SAT 92; BMI 25.3
--- NOTE | 2023-03-19 23:12 | ECG_ITS ---
Test Reason : DYSPNEA Blood Pressure : / mmHG Vent. Rate : 074 BPM Atrial Rate : 074 BPM P-R Int : 166 ms QRS Dur : 078 ms QT Int : 396 ms P-R-T Axes : 081 079 057 degrees QTc Int : 439 ms Poor data quality, interpretation may be adversely affected Normal sinus rhythm Biatrial enlargement Nonspecific ST and T wave abnormality Abnormal ECG When compared with ECG of 02-SEP-2020 04:59, No significant change was found Referred By: Generic ED Physician Electronically Signed By:JOSEF JOHNSON
--- NOTE | 2023-03-19 23:22 | ED_ITS ---
HPI - SOB/Dyspnea General Chief Complaint: Dyspnea Stated Complaint: Asthma, Diff Breathing Time Seen by Provider: 03/19/23 23:16 Source: patient Mode of arrival: ambulatory Limitations: no limitations History of Present Illness HPI Narrative: 52-year-old male with a history of asthma who presents emergency department for evaluation of shortness of breath which began earlier in the day. Patient states that he was using his nebulizer frequently, at least 3 times with no improvement of his symptoms . The patient's breathing got worse he came to the emergency department for evaluation. He states that he has a nonproductive cough which usually gets when he has a flare-up of his asthma. He denied fever, chills, rhinorrhea, sore throat. He states that he is having a chest tightness which is worse with breathing. Patient states that he has never been intubated. Patient had a similar exacerbation of his asthma on 06/20/2022 but did not require hospitalization. Patient has never been intubated. Related Data Home Medications Medication Instructions Recorded Confirmed atomoxetine 40 mg capsule 1 cap PO QAM 06/20/22 06/20/22 buspirone 5 mg tablet 1 tab PO BID PRN anxiety 06/20/22 06/20/22 fluticasone 250 mcg-salmeterol 50 1 puff inhalation BID 06/20/22 06/20/22 mcg/dose blistr powdr for inhalation ([place] Inhpaz) losartan 50 mg tablet 1 tab PO DAILY 06/20/22 06/20/22 montelukast 10 mg tablet 1 tab PO DAILY 06/20/22 06/20/22 Previous Rx's Medication Instructions Recorded albuterol sulfate 90 mcg/actuation 2 puff inhalation Q4-6H PRN 09/02/20 aerosol inhaler (Ventolin HFA) shortness of breath or wheezing #1 ea ipratropium 0.5 mg-albuterol 3 mg 3 ml inhalation Q6H PRN shortness 09/02/20 (2.5 mg base)/3 mL nebulization of breath or wheezing #180 mL soln nebulizer and compressor #1 ea 09/02/20 albuterol sulfate 2.5 mg/3 mL 2.5 mg (3 mL) inhalation QID PRN 03/09/21 (0.083 %) solution for nebulization shortness of breath or wheezing #90 mL prednisone 20 mg tablet 40 mg (2 x 20 mg) PO DAILY #8 tabs 06/21/22 albuterol sulfate 2.5 mg/3 mL 2.5 mg (3 mL) inhalation Q4-6H PRN 03/20/23 (0.083 %) solution for nebulization shortness of breath or wheezing #90 mL albuterol sulfate 90 mcg/actuation 2 puff inhalation Q4-6H PRN 03/20/23 aerosol inhaler (ProAir HFA) shortness of breath or wheezing #8.5 grams prednisone 20 mg tablet 60 mg (3 x 20 mg) PO DAILY 5 days 03/20/23 #15 tabs Allergies Allergy/AdvReac Type Severity Reaction Status Date / Time Penicillins [PENICILLINS] Allergy Unknown UNKNOWN Verified 09/02/20 04:59 Review of Systems 2 Review of Systems: Yes all other systems are reviewed and are negative [facility] Past Medical History [facility] Narrative: Social history: He denies tobacco, alcohol and drug use. Medical History ADHD Medically noncompliant Essential (primary) hypertension Asthma Social History Social History Alcohol intake: never Patient Tobacco Use Status: Never used Tobacco Smoked in Last 30 Days: No Use of substances other than those prescribed or required for medical reasons: No Substance Use Type: Marijuana Advance Directives: No Advance Directives Information Provided: No Physical Exam 2 Vital Signs: Vital Signs: Last Vital Signs Pulse 78 03/20/23 00:11 Resp 21 H 03/20/23 00:11 BP 112/69 03/20/23 00:10 Pulse Ox 99 03/20/23 00:10 O2 Del Method Room Air 03/20/23 00:10 BMI result Body Mass Index 25.3 Vital signs were normal Exam: General: Patient is awake, alert, talking clipped signs is secondary to his dyspnea, tachypnea Head: Normocephalic, atraumatic EENT: PERRL, Lids normal, sclera normal, conjunctiva normal, nose normal , ears normal, throat without erythema or exudates Neck: Supple, no adenopathy, trachea midline and nontender Lung: Breath sounds diminished bilaterally, poor inspiratory and expiratory flow, diffuse wheezing Chest: symmetric movement, nontender Heart: regular rate and rhythm, normal S1, S2 no murmurs or rubs Abdomen: soft, non-tender, nondistended, normal bowel sounds Back: no vertebral tenderness, no CVAT Extremities: no deformities, moves all extremities symmetrically Skin: no rashes, no lesion, normal color and warmth Neuro: Awake, oriented difficulty speaking secondary to dyspnea, cranial nerves intact, moves all extremities symmetrically Psych: Cooperative Medications Administered Discontinued Medications Generic Name Dose Route Start Last Admin Trade Name Denizq PRN Reason Stop Dose Admin Albuterol Sulfate 7.5 mg/ 10 mg 03/19/23 23:28 03/19/23 23:39 Albuterol Sulfate 2.5 mg INHALE 03/19/23 23:29 10 mg ONCE ONE Administration Albuterol Sulfate 2.5 mg/ 0 mg 03/19/23 23:59 03/20/23 00:10 Albuterol/Ipratropium 3 ml INHALE 03/20/23 00:00 5 dose ONCE ONE Administration Magnesium Sulfate 2 gm in 50 mls @ 25 mls/hr 03/19/23 23:22 03/19/23 23:27 Magnesium Sulfate/H2o IV 03/20/23 01:21 25 mls/hr ONCE ONE Administration Methylprednisolone Sodium Succinate 125 mg 03/19/23 23:22 03/19/23 23:27 Methylprednisolone Sod Succ 125 Mg/2 Ml Vial IVPUSH 03/19/23 23:23 125 mg ONCE ONE Administration Medical Decision Making Medical Decision Making MDM Narrative: 52-year-old male with a history of asthma who presents emergency department for evaluation of shortness of breath which began earlier in the day. Patient states that he was using his nebulizer frequently, at least 3 times with no improvement of his symptoms . The patient's breathing got worse he came to the emergency department for evaluation. On presentation, patient was speaking in clip sentences, has significant dyspnea tachypnea, diminished breath sounds bilaterally with poor inspiratory and expiratory flow in wheezing. Patient was ordered to get ED bronchodilator protocol with 10 mg of albuterol via nebulizer followed by albuterol 2.5 mg with DuoNeb 2.5 mg. Patient also was ordered to get Solu-Medrol 125 mg IV and magnesium 2 g IV. 0244: Patient's laboratory evaluation and chest x-ray were unremarkable. Patient is significantly better after the above treatment, patient has normal inspiratory-expiratory movement with no wheezing Patient will be discharged home with a prescription for prednisone 60 mg once a day for 5 days. Patient will also be given prescriptions for albuterol inhaler and albuterol nebulizer solutions. Differential Diagnosis Differential Diagnoses: The differential diagnosis associated with the presentation includes Differential diagnosis includes was not limited to pneumonia, pneumothorax, bronchitis, asthma exacerbation Lab Data MDM Lab Attestation statement: I reviewed the patient's lab results. My interpretation patient's laboratory evaluation is as follows: CBC was normal. BUN elevated 25 with an elevated creatinine of 1.44. COVID and flu were negative. 03/19/23 23:25 03/19/23 23:25 Labs: Lab Results 03/19/23 Range/Units 23:25 WBC 9.7 (4.8-10.8) X10*3/uL RBC 4.70 (4.60-5.80) X10*6/uL Hgb 15.7 (14.0-18.0) g/dl Hct 46.1 (42.0-52.0) % MCV 98.1 H (80.0-98.0) fL MCH 33.4 H (27.0-33.0) pg MCHC 34.1 (31.0-36.0) g/dl RDW 11.8 (11.0-16.0) % Plt Count 371 (160-400) X10*3/uL MPV 8.8 L (9.4-12.4) fL Immature Gran % (Auto) 0.5 H (0.0-0.4) % Neut % (Auto) 49.6 (45-73) % Lymph % (Auto) 27.2 (20-40) % [place] % (Auto) 9.2 (2-11) % Eos % (Auto) 13.0 H (0-4) % Baso % (Auto) 0.5 (0-2) % Lymph # (Auto) 2.6 (1.2-4.9) X10*3/uL [place] # (Auto) 0.9 (0.1-1.2) X10*3/uL Eos # (Auto) 1.3 H (0.0-0.4) X10*3/uL Baso # (Auto) 0.1 (0.0-0.2) X10*3/uL Abs Immat Gran (auto) 0.05 H (0.00-0.03) X10*3/uL Absolute Neuts (auto) 4.8 (2.0-8.3) x10*3/uL Absolute Nucleated RBC 0.000 (0.0-0.012) X10*3/uL Nucleated RBC % (auto) 0.0 (0.0-0.2) /100WBC Sodium 142 (135-145) mmol/L Potassium 4.0 (3.3-5.1) mmol/L Chloride 103 (96-108) mmol/L Carbon Dioxide 25 (22-29) mmol/L Anion Gap 18 (12-20) BUN 25 H (9-16) mg/dL Creatinine 1.44 H (0.5-1.4) mg/dL Estim Creat Clear Calc 59.3 Estimated GFR 52 Random Glucose 99 (60-115) mg/dL Calcium 9.9 (8.4-10.2) mg/dL Total Bilirubin 0.9 (0.0-1.0) mg/dL Direct Bilirubin 0.3 (0.0-0.5) mg/dL AST 22 (5-37) U/L ALT 19 (0-40) U/L Alkaline Phosphatase 75 (39-117) U/L Troponin I High Sens < 2.7 (<3.5-35.0) ng/L Total Protein 8.1 H (6.5-8.0) g/dL Albumin 4.7 (3.5-5.0) g/dL COVID-19 (GRUPO) Negative (Negative) COVID-19 Clin Com See Note Influenza Type A (FABIANA) Negative (Negative) Influenza Type B (FABIANA) Negative (Negative) Influenza A & B Note See Note Independent Interpretation I performed an independent interpretation of an: Plain X-Ray Interpretation: My interpretation patient's one-view chest x-ray is as follows: Hyperinflated lungs but No acute disease Radiology Impression Discussion of test interpretation with radiology: I have reviewed the radiologist's reading. Radiologist Impression: XR chest 1V IMPRESSION: No acute cardiopulmonary findings. Dictated By: n Critical Care Time Critical Care Time Critical Care Time: Yes Total Critical Care Time: 45 Attestation: Critical Care: The patient was critically ill with a high probability of imminent or life threatening deterioration. I spent greater than 30 minutes of discontinuous time evaluating the patient,delivering critical care at the bedside, discussing and evaluating pertinent data with consultants/nursing/respiratory therapy. Critical care time does not include time spent performing separately billable procedures or teaching. Total time spent performing critical care was 45 minutes. Discharge Plan Discharge Clinical Impression: Acute respiratory distress Asthma with exacerbation Qualifiers: Asthma severity: severe Asthma persistence: unspecified Qualified Code(s): J 45.901 - Unspecified asthma with (acute) exacerbation Patient Disposition: Home, Self-Care Instructions: Asthma (ED) Additional Instructions: Your blood work was normal. Your chest x-ray was unremarkable-there was no evidence for pneumonia or fluid in your lungs which is reassuring. Your symptoms are caused by an asthma exacerbation most likely with a large inflammatory component making your albuterol nebulizer less effective Take prednisone 20 mg pills, 3 pills once a day for 5 days. While you are taking prednisone, do not take any NSAIDs (Motrin, Advil, ibuprofen, Aleve, naproxen). Use the albuterol inhaler with the spacer, 2 puffs every 4-6 hours as needed for shortness of breath and wheezing. Use the albuterol nebulizer treatments every 4-6 hours as needed for shortness of breath or wheezing Follow-up with your doctor in 2 days. Please return to the emergency department if your symptoms get worse or if you develop any symptoms that are concerning to you. Prescriptions: New prednisone 20 mg tablet 60 mg PO DAILY 5 Days Qty: 15 0RF albuterol sulfate [ProAir HFA] 90 mcg/actuation HFA aerosol inhaler 2 puff inhalation Q4-6H PRN (Reason: shortness of breath or wheezing) Qty: 8.5 0RF albuterol sulfate 2.5 mg /3 mL (0.083 %) solution for nebulization 2.5 mg inhalation Q4-6H PRN (Reason: shortness of breath or wheezing) Qty: 90 0RF No Action albuterol sulfate [Ventolin HFA] 90 mcg/actuation HFA aerosol inhaler 2 puff inhalation Q4-6H PRN (Reason: shortness of breath or wheezing) Qty: 1 0RF (DME) nebulizer and compressor Device See Rx Instructions .ROUTE .MEDSUPPLY Qty: 1 0RF Rx Instructions: As directed ipratropium-albuterol 0.5 mg-3 mg(2.5 mg base)/3 mL solution for nebulization 3 ml inhalation Q6H PRN (Reason: shortness of breath or wheezing) Qty: 180 0RF albuterol sulfate 2.5 mg /3 mL (0.083 %) solution for nebulization 2.5 mg inhalation QID PRN (Reason: shortness of breath or wheezing) Qty: 90 0RF losartan 50 mg tablet 1 tab PO DAILY buspirone 5 mg tablet 1 tab PO BID PRN (Reason: anxiety) fluticasone propion-salmeterol [[place] Inhub] 250-50 mcg/dose blister with device 1 puff INHALATION BID montelukast 10 mg tablet 1 tab PO DAILY atomoxetine 40 mg capsule 1 cap PO QAM prednisone 20 mg tablet 40 mg PO DAILY Qty: 8 0RF
[2023-03-19] MEDS: methylPREDNISolone Sod Succ 125 MG/2 ML VIAL IVPUSH (23:27)
[2023-03-19] MEDS: Magnesium Sulfate/H2O 2 GM/50 ML PIGGYBACK IV (23:27)
[2023-03-19 23:30] LABS: MANUAL DIFF FLAG NO
--- NOTE | 2023-03-19 23:30 | PC.NURSE ---
pt a&o, pt has wheezed through out, pt belly breathing with abd retraction. respiratory called, breathing treatment, line place, labs drawn, medication given. pt on bedside monitor. Will continue to monitor.
[2023-03-19 23:31] LABS: Basophils Absolute Auto 0.1 X10*3/uL (0.0-0.2); Basophils Percent Auto 0.5 % (0-2); Eosinophils Absolute Auto 1.3 X10*3/uL (0.0-0.4); Hematocrit 46.1 % (42.0-52.0); Hemoglobin 15.7 g/dl (14.0-18.0); Imm Gran Abs Auto 0.05 X10*3/uL (0.00-0.03); Imm Gran Pct Auto 0.5 % (0.0-0.4); Lymphocytes Absolute Auto 2.6 X10*3/uL (1.2-4.9); Lymphocytes Percent Auto 27.2 % (20-40); Mean Corpuscular HGB Conc 34.1 g/dl (31.0-36.0); Mean Corpuscular Hemoglobin 33.4 pg (27.0-33.0); Mean Corpuscular Volume 98.1 fL (80.0-98.0); Mean Platelet Volume 8.8 fL (9.4-12.4); Monocytes Absolute Auto 0.9 X10*3/uL (0.1-1.2); Monocytes Percent Auto 9.2 % (2-11); Neutrophils Absolute Auto 4.8 x10*3/uL (2.0-8.3); Neutrophils Percent Auto 49.6 % (45-73); Platelet Count 371 X10*3/uL (160-400); Red Cell Distribution Width 11.8 % (11.0-16.0); White Blood Count 9.7 X10*3/uL (4.8-10.8)
[2023-03-19] MEDS: Albuterol Sulfate 7.5 MG, Albuterol Sulfate (0.083%) 2.5 MG 10 MG INHALE (23:39)
[2023-03-19 23:40] VITALS: PULSE 73; RESP 25; O2SAT 97
[2023-03-19 23:46] LABS: Alanine Aminotransferase 19 U/L (0-40); Albumin Level 4.7 g/dL (3.5-5.0); Alkaline Phosphatase 75 U/L (39-117); Anion Gap 18 (12-20); Aspartate Amino Transferase 22 U/L (5-37); Bilirubin Direct 0.3 mg/dL (0.0-0.5); Bilirubin Total 0.9 mg/dL (0.0-1.0); Blood Urea Nitrogen 25 mg/dL (9-16); Calcium 9.9 mg/dL (8.4-10.2); Carbon Dioxide 25 mmol/L (22-29); Chloride 103 mmol/L (96-108); Creatinine Clr Calc Pharmacy 59.3; Estimated Glomerular Filt Rate 52; Glucose Random 99 mg/dL (60-115); Sodium 142 mmol/L (135-145); Total Protein 8.1 g/dL (6.5-8.0)
[2023-03-19 23:47] LABS: IDNOW Serial# 9DB6401D; Influenza A Negative (Negative); Influenza B2 Negative (Negative)
[2023-03-19 23:48] LABS: COVID-19 Test Negative (Negative); IDNOW Serial# BCCEAD1C
[2023-03-19 23:53] LABS: Troponin-I High Sensitivity < 2.7 ng/L (<3.5-35.0)
[2023-03-20 00:10] VITALS: BP 112/69; PULSE 79; RESP 18; O2SAT 99
[2023-03-20] MEDS: Albuterol Sulfate 2.5 MG, Albuterol/Iprat 2.5/0.5MG 3 ML 3 ML INHALE (00:10)
[2023-03-20 00:11] VITALS: PULSE 78; RESP 21; O2SAT 98
--- NOTE | 2023-03-20 00:51 | PC.NURSE ---
pt completed respiratory treatment, resting in bed, no sign of distress.
== END 2023-03-20 03:35 | disposition home or self-care (01) ==
PROVIDERS: Emergency Provider Emergency Medicine Emergency Medical Services
DX: J45.901 Unspecified asthma with (acute) exacerbation (principal); R06.03 Acute respiratory distress; R06.02 Shortness of breath; R94.31 Abnormal electrocardiogram [ECG] [EKG]; Z20.822 Contact with and (suspected) exposure to COVID-19; Z20.828 Contact with and (suspected) exposure to other viral communicable diseases; Z79.899 Other long term (current) drug therapy
CPT/HCPCS: 36415; 71045; 80048; 80076; 84484; 85025; 87502; 87635; 93005; 94640; 96365; 96366; 96375; 99284; 99285; J2930; J3475